=== PATIENT | male | born 1965 | race Native Hawaiian/Other Pacific Islander ===

== ENCOUNTER 2022-05-18 17:26 | Emergency (ER) | payer OTHER ==
[~2022-05-18] VITALS: Ht 188 cm; Wt 122.5 kg
== END 2022-05-18 20:30 | disposition home or self-care (01) ==
LOC: ED 17:26
DX: K04.7 Periapical abscess without sinus (principal)
CPT/HCPCS: 96372; 99282; J0696; J1885